=== PATIENT | female | born 1975 ===

== ENCOUNTER 2019-02-19 16:01 | Emergency (ER) | payer OTHER, SELFPAY ==
[2019-02-19 16:13] VITALS: BP 187/99; PULSE 78; RESP 15; TEMP 37.1; O2SAT 99; BMI 24.4
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
[2019-02-19] MEDS: IBUPROFEN 400 MG TABLET PO (17:01)
[2019-02-19] MEDS: ONDANSETRON 4 MG ODT SL (17:01)
[2019-02-19] MEDS: ACETAMINOPHEN 325 MG TABLET 975 MG PO (17:02)
[2019-02-19 17:19] VITALS: BP 168/105; PULSE 78; RESP 14; O2SAT 100
== END 2019-02-19 17:20 | disposition home or self-care (01) ==
PROVIDERS: Emergency Provider Nurse Practitioner
DX: S09.90XA Unspecified injury of head, initial encounter (principal); S00.93XA Contusion of unspecified part of head, initial encounter; V04.10XA Pedestrian on foot injured in collision with heavy transport vehicle or bus in traffic accident, initial encounter
CPT/HCPCS: 70450; 99282; 99284